=== PATIENT | female | born 1995 | race Caucasian/White ===

== ENCOUNTER 2017-11-19 17:34 | Inpatient (IN) | payer MEDICAID, OTHER, SELFPAY ==
--- NOTE | 2017-11-19 15:18 | PDOC.LDHP ---
Labor and Delivery H&P Chief complaint: scheduled induction HPI: 22 yo @40w2d by LMP c/w 20 week sono with A1DM who presented for IOL, however, is in active labor. Current gestational age (weeks): 40 Due date: 11/18/17 Dating criteria: last menstrual period Grav: 2 Para: 1 OB History Details: x1 Current complications: gestational diabetes Abnormal US findings: No Past Medical History: Denies Current medications: none Previous surgical history: none Allergies/Adverse Reactions: Allergies Allergy/AdvReac Type Severity Reaction Status Date / Time No Known Allergies Allergy Unverified 11/20/17 07:49 Social history: none - Physical Exam Vital signs reviewed and normal: yes General: NAD Heart: other (tachcyardia on initial assessment) Lungs: nonlabored breathing Abdomen: gravid Extremeties: no edema FHT: category 1 (140s, mod mary, +accels, no decels) [place] contractions every: q 5 min - Vaginal Exam cm dilated: 5 (cephalic; AROM thick meconium ) Effacement: 75% Station: -2 - OB Labs Blood type: O RH: positive Antibody Screen: negative HIV: negative RPR: negative HEPSAg: negative 1 hour GCT: positive 3 hour GTT: positive GBS: negative Urine drug screen: negative Rubella: immune - Assessment 40wk IUP A1DM Active labor - Plan Plan: admit to L&D, labor augmentation if indicated, informed consent obtained, anesthesia consult for pain management -: NICU at delivery due to thick mec
[~2017-11-19 17:34] MED LIST: Acetaminophen 500 MG TAB PO PRN; Butorphanol Tartrate 1 MG/ML VIAL SLOW IVP PRN; Carboprost 250 MCG/ML AMP IM PRN; Diphenoxylate HCl/Atropine Tablet PO PRN; HYDROcodone/Acetaminophen 5/325 mg Tablet PO PRN; Ibuprofen 800 MG TAB PO PRN; Lactated Ringer's 1,000 ML IV SCH; Lidocaine 1% (PF) 30 ML VIAL SC PRN; Methylergonovine 0.2 MG/ML VIAL IM PRN; Misoprostol 200 MCG TAB PR PRN; NS / Oxytocin 40 units/1000ml 1,000 ML IV PRN; NS w/ Oxytocin 10 units 500 ML IV SCH; Ondansetron HCl/PF 4 MG/2 ML Vial IVP PRN; Promethazine HCl 25 MG/ML VIAL IM PRN
[2017-11-20] MEDS: Lactated Ringer's 1,000 ML IV SCH ×2 (08:02→10:45)
[2017-11-20] MEDS ORDERED: NS w/ Oxytocin 10 units 500 ML IV SCH (08:12)
[2017-11-20] MEDS ORDERED: Promethazine HCl 25 MG/ML VIAL IM PRN (08:12)
[2017-11-20] MEDS ORDERED: Misoprostol 200 MCG TAB PR PRN (08:12)
[2017-11-20] MEDS ORDERED: Ibuprofen 800 MG TAB PO PRN (08:12)
[2017-11-20] MEDS ORDERED: Acetaminophen 500 MG TAB PO PRN (08:12)
[2017-11-20] MEDS ORDERED: Butorphanol Tartrate 1 MG/ML VIAL SLOW IVP PRN (08:12)
[2017-11-20] MEDS ORDERED: HYDROcodone/Acetaminophen 5/325 mg Tablet PO PRN (08:12)
[2017-11-20] MEDS ORDERED: Ondansetron HCl/PF 4 MG/2 ML Vial IVP PRN (08:12)
[2017-11-20] MEDS ORDERED: Lidocaine 1% (PF) 30 ML VIAL SC PRN (08:12)
[2017-11-20 08:21] LABS: Mean Corpuscular HGB CONC 33.4 g/dL (32.0-36.0); Mean Corpuscular Hemoglobin 31.2 pg (27.0-31.0); Mean Corpuscular Volume 93.4 fL (78.0-98.0); Mean Platelet Volume 7.9 fL (7.4-10.4); Platelet Count 201 thou/uL (130-400); RBC Distribution Width 12.1 % (11.5-14.5); Red Blood Cell (RBC) Count 4.18 mill/uL (4.20-5.40); White Blood Cell (WBC) Count 10.5 thou/uL (4.8-10.8)
[2017-11-20 08:39] LABS: Glucose 134 mg/dL (70-105)
[2017-11-20 09:02] LABS: Syphilis Antibody Nonreactive (Nonreactive); Syphilis Antibody Index 0.05 S/CO (<1.00 Non-Reactive)
[2017-11-20 09:03] LABS: HBSAg Index 0.15 S/CO (0-0.99); HIV (1/2) Antibody/Antigen Non-Reactive (NonReactive); HIV 1/2 INDEX 0.14 S/CO (<1.00); Hep B Surf Ag Non-Reactive S/CO (NonReactive)
[2017-11-20 09:09] VITALS: BMI 31.8
[2017-11-20] MEDS: NS / Oxytocin 40 units/1000ml 1,000 ML IV PRN ×2 (11:17→11:41)
--- NOTE | 2017-11-20 11:28 | PDOC.OPDEL ---
OB Operative/Delivery Note Delivery Dr/Surgeon: Stephani Kincaid DO Pre-Delivery Diagnosis: active labor Procedure/Post Delivery Dx: spontaneous vaginal delivery Weeks gestation: 40 Anesthesia: none - Findings A Sex: female - 1 min: 8 - 5 min: 9 - Additional Findings/Plan Placenta delivered: spontaneous Estimated blood loss: 200 cc Compilations/Other Findings: No complications. Thick meconium stained AF Infant in OLIVER position Post delivery plan: routine recovery
[2017-11-20] MEDS ORDERED: Bisacodyl 10 MG SUPP PR PRN (13:42)
[2017-11-20] MEDS ORDERED: Milk Of Magnesia 30 ML UDCUP PO PRN (13:42)
[2017-11-20] MEDS ORDERED: Benzocaine/Menthol 20-0.5% 60 ML CAN TOP PRN (13:42)
[2017-11-20] MEDS ORDERED: Methylergonovine 0.2 MG/ML VIAL IM PRN (13:42)
[2017-11-20] MEDS ORDERED: NS / Oxytocin 40 units/1000ml 1,000 ML IV SCH (13:42)
[2017-11-20] MEDS: traMADol HCl 50 MG TAB PO PRN (15:05)
[2017-11-20] MEDS: Ferrous Sulfate 325 MG TAB PO SCH (17:41)
[2017-11-20] MEDS: Ibuprofen 800 MG TAB PO SCH ×2 (17:42→22:09)
[2017-11-20] MEDS: Docusate Calcium (SURFAK) 240 MG CAP PO SCH (22:09)
[2017-11-21] MEDS: traMADol HCl 50 MG TAB PO PRN (02:10)
[2017-11-21] MEDS: Ibuprofen 800 MG TAB PO SCH ×3 (05:50→21:44)
[2017-11-21 06:08] LABS: Hemoglobin 13.2 g/dL (12.0-16.0); Mean Corpuscular HGB CONC 33.5 g/dL (32.0-36.0); Mean Corpuscular Hemoglobin 32.1 pg (27.0-31.0); Mean Corpuscular Volume 95.9 fL (78.0-98.0); Mean Platelet Volume 8.4 fL (7.4-10.4); Platelet Count 206 thou/uL (130-400); RBC Distribution Width 12.3 % (11.5-14.5); Red Blood Cell (RBC) Count 4.11 mill/uL (4.20-5.40); White Blood Cell (WBC) Count 12.7 thou/uL (4.8-10.8)
--- NOTE | 2017-11-21 08:15 | PDOC.PP ---
Post Progress Note Post Day #: 1 Subjective: Minimal lochia and pain. No concerns. Breast feeding. PO intake tolerated: yes Flatus: yes Ambulation: yes Vital Signs (12 hours) Temp Pulse Resp BP BP 11/21/17 08:07 98.0 F 60 20 88/51 L 11/21/17 05:40 98.0 F 74 18 108/70 11/21/17 00:00 98.0 F 66 16 92/50 L Weight Weight 174 lb - Physical Examination General: NAD Cardiovascular: RRR Respiratory: non-labored breathing Abdominal: no distention, appropriately TTP Fundus firm & at: below umbilicus Extremities: negative homans (B) Neurological: no gross focal deficits Psychiatric: A&Ox3 Result Diagrams: 11/21/17 05:29 11/20/17 08:01 Additional Labs: Post Labs Blood Type O POSITIVE 11/20/17 08:01 Hep Bs Antigen Non-Reactive S/CO (NonReactive) 11/20/17 08:01 (1) Spontaneous vaginal delivery Code(s): O80 - ENCOUNTER FOR FULL-TERM UNCOMPLICATED DELIVERY Status: Acute - Assessment/Plan PPD #1 VSSAF Continue PP care Desires to stay until tomorrow.
[2017-11-21] MEDS: Prenatal Vitamin 1 TAB PO SCH (09:07)
[2017-11-21] MEDS: Ferrous Sulfate 325 MG TAB PO SCH ×2 (09:08→18:12)
[2017-11-21] MEDS: Docusate Calcium (SURFAK) 240 MG CAP PO SCH ×2 (09:08→21:44)
[2017-11-21] MEDS ORDERED: Lanolin Ointment 7 GM TUBE TOP PRN (22:24)
[2017-11-22] MEDS: traMADol HCl 50 MG TAB PO PRN (04:11)
[2017-11-22] MEDS: Ibuprofen 800 MG TAB PO SCH ×2 (06:16→12:46)
[2017-11-22] MEDS: Ferrous Sulfate 325 MG TAB PO SCH (07:55)
[2017-11-22 08:07] VITALS: BP 106/69; TEMP 98.6
--- NOTE | 2017-11-22 08:16 | PDOC.PP ---
Post Progress Note Post Day #: 2 Subjective: No complaints. Breast feeding. Minimal pain and lochia. PO intake tolerated: yes Flatus: yes Ambulation: yes Vital Signs (12 hours) Temp Pulse Resp BP 11/22/17 08:07 98.6 F 62 20 106/69 11/21/17 21:45 98.7 F 81 20 Weight Weight 174 lb - Physical Examination General: NAD Cardiovascular: RRR Respiratory: non-labored breathing Abdominal: no distention, appropriately TTP Fundus firm & at: Below umbilicus Extremities: negative homans (B) Neurological: no gross focal deficits Psychiatric: A&Ox3, normal affect Result Diagrams: 11/21/17 05:29 11/20/17 08:01 Additional Labs: Post Labs Blood Type O POSITIVE 11/20/17 08:01 Hep Bs Antigen Non-Reactive S/CO (NonReactive) 11/20/17 08:01 (1) Spontaneous vaginal delivery Code(s): O80 - ENCOUNTER FOR FULL-TERM UNCOMPLICATED DELIVERY Status: Acute - Assessment/Plan PPD2 VSSAF Stable. D/C home today.
[2017-11-22] MEDS: Docusate Calcium (SURFAK) 240 MG CAP PO SCH (08:21)
[2017-11-22] MEDS: Prenatal Vitamin 1 TAB PO SCH (08:21)
== END 2017-11-22 14:17 | disposition home or self-care (01) | DRG 775 ==
LOC: L&D 11-20 07:00 → 3SW 11-20 13:37
PROVIDERS: ADMIT Obstetrics & Gynecology; ATTEND Obstetrics & Gynecology
PROC: 10E0XZZ Delivery of Products of Conception, External Approach (ICD-10-PCS; principal; 2017-11-20)
PROC: 10907ZC Drainage of Amniotic Fluid, Therapeutic from Products of Conception, Via Natural or Artificial Opening (ICD-10-PCS; 2017-11-20)
DX: O48.0 Post-term pregnancy (principal); Z3A.40 40 weeks gestation of pregnancy; Z37.0 Single live birth; O77.0 Labor and delivery complicated by meconium in amniotic fluid
CPT/HCPCS: 36415; 82947; 85027; 86780; 86850; 86900; 86901; 87340; 87389; J2001; J2405

== ENCOUNTER 2020-04-29 11:43 | Emergency (ER) | payer MEDICAID, SELFPAY ==
[2020-04-29] MEDS ORDERED: Ketorolac Tromethamine 30 MG/ML VIAL ONE (12:09)
[2020-04-29] MEDS ORDERED: cefTRIAXone\\ROCEPHIN 2 GM VIAL ONE (12:09)
[2020-04-29 12:37] LABS: Bacteria/HPF 4+ HPF (None Seen); Bilirubin Negative (Negative); Blood, Urine 3+ (Negative); Clarity Turbid (Clear); Glucose, Urine (Dipstick) Normal (Negative); Ketone, Urine Negative (Negative); Leukocyte 500 Leu/uL (Negative); Nitrite Negative (Negative); Protein, Urine (Dipstick) 20 mg/dL (Neg-Trace); RBC/HPF Greater than 50 HPF (0-3); Specific Gravity, Urine 1.008 (1.002-1.036); Squamous Epithelial 0-3 HPF (0-3); Urobilinogen Normal mg/dL (Less than 2); WBC/HPF Greater than 50 HPF (0-3); pH, Urine 5.5 (5.0-9.0)
[2020-04-29 12:40] LABS: #Basophils 0.1 thou/uL (0.0-0.2); #Lymphocytes 2.4 thou/uL (1.20-3.40); #Monocytes 0.5 thou/uL (0.11-0.59); #Neutrophils 13.2 thou/uL (1.40-6.50); %Basophils 0.5 % (0.0-1.0); %Eosinophils 0.2 % (0.0-10.0); %Lymphocytes 14.6 % (21.0-51.0); %Monocytes 3.3 % (0.0-10.0); %Neutrophils 81.4 % (42.0-75.0); Hemoglobin 14.9 g/dL (12.0-16.0); Mean Corpuscular HGB CONC 32.3 g/dL (32.0-36.0); Mean Corpuscular Hemoglobin 29.5 pg (27.0-31.0); Mean Corpuscular Volume 91.6 fL (78.0-98.0); Mean Platelet Volume 7.7 fL (7.4-10.4); Platelet Count 325 thou/uL (130-400); RBC Distribution Width 11.6 % (11.5-14.5); Red Blood Cell (RBC) Count 5.03 mill/uL (4.20-5.40); White Blood Cell (WBC) Count 16.2 thou/uL (4.8-10.8)
[2020-04-29 12:44] LABS: BHCG - Serum Negative (NEGATIVE); Pregs Control Background? CLEAR/WHITE (CLR/WHITE); Pregs Control Bar Appear? YES (CONTROL BAR)
[2020-04-29 13:14] LABS: ALT (SGPT) 19 U/L (8-55); AST (SGOT) 21 U/L (5-34); Albumin 4.1 g/dL (3.5-5.0); Alkaline Phosphatase 108 U/L (40-110); Anion Gap 15 mmol/L (10-20); BUN (Urea Nitrogen) 11 mg/dL (7.0-18.7); Bilirubin, Total 0.5 mg/dL (0.2-1.2); Calc. Creatinine Clearance 0 mL/min (70-130); Calcium 9.5 mg/dL (7.8-10.44); Carbon Dioxide 21 mmol/L (22-29); Chloride 105 mmol/L (98-107); Estimated GFR-MDRD Greater than 90; Globulin 4.2 g/dL (2.4-3.5); Glucose 133 mg/dL (70-105); Potassium 4.4 mmol/L (3.5-5.1); Protein, Total 8.3 g/dL (6.0-8.3); Sodium 137 mmol/L (136-145)
== END 2020-04-29 14:20 | disposition home or self-care (01) ==
LOC: EDBD 11:43 → ERS 11:43
DX: N12 Tubulo-interstitial nephritis, not specified as acute or chronic (principal); N30.00 Acute cystitis without hematuria
CPT/HCPCS: 80053; 81003; 81015; 84703; 85025; 87077; 87086; 87186; 96365; 96375; J0696; J1885

== ENCOUNTER 2023-10-26 18:02 | Emergency (ER) | payer SELFPAY ==
[2023-10-26] MEDS ORDERED: Dexamethasone 10 MG/ML VIAL ONE (19:17)
[2023-10-26] MEDS ORDERED: Acetaminophen 500 MG TAB ONE ×2 (19:17→19:34)
[2023-10-26] MEDS ORDERED: Ibuprofen 200 MG TAB ONE (19:17)
[2023-10-26 19:49] LABS: Bilirubin Negative (Negative); Blood, Urine Negative (Negative); CAUTI Indications for Culture Pelvic or flank pain; Clarity Turbid (Clear); Glucose, Urine (Dipstick) Normal (Negative); Ketone, Urine 150 mg/dL (Negative); Leukocyte 250 Leu/uL (Negative); Nitrite Negative (Negative); Protein, Urine (Dipstick) 20 mg/dL (Neg-Trace); Specific Gravity, Urine 1.032 (1.002-1.036); Squamous Epithelial 21-50 HPF (0-3); WBC/HPF 21-50 HPF (0-3)
[2023-10-26 19:54] LABS: Bacteria/HPF 1+ HPF (None Seen)
[2023-10-26 19:55] LABS: Urine Culture Reflex Yes Yes
== END 2023-10-26 21:00 | disposition home or self-care (01) ==
LOC: ERS 18:02
DX: J02.9 Acute pharyngitis, unspecified (principal); R73.03 Prediabetes; Z55.6 Problems related to health literacy
CPT/HCPCS: 81001; 87081; 87086; 87430; 99283; J1100